=== PATIENT | male | born 1995 | race Caucasian/White ===

== ENCOUNTER 2020-04-04 19:19 | Emergency (ER) | payer BC ==
[~2020-04-04] VITALS: Ht 167.6 cm; Wt 72.7 kg
[2020-04-04 19:28] VITALS: BP 124/64; TEMP 98.9
[2020-04-04] MEDS ORDERED: DOXYCYCLINE 10100 MG PO (20:04)
[2020-04-04 20:20] VITALS: PULSE 94
== END 2020-04-04 20:20 | disposition home or self-care (01) ==
LOC: COL.ER 19:19
DX: L02.415 Cutaneous abscess of right lower limb (principal); F17.210 Nicotine dependence, cigarettes, uncomplicated